=== PATIENT | female | born 1980 | race Caucasian/White ===

== ENCOUNTER 2019-02-21 08:30 | Outpatient (CLI) | payer BC ==
--- NOTE | 2019-02-21 09:58 | RAD ---
PA AND LATERAL VIEWS CHEST: Date: 02/21/19 HISTORY: Shortness of breath, cough, and congestion. FINDINGS: The heart size is normal. The lungs are expanded without focal areas of consolidation, pneumothoraces , or pleural effusions. There are degenerative changes in the spine. IMPRESSION: No acute process. POS: [facility]
== END 2019-02-21 08:31 | disposition home or self-care (01) ==
LOC: SCSRAD 08:30
PROVIDERS: ATTEND Nurse Practitioner Family
DX: R06.02 Shortness of breath (principal)
CPT/HCPCS: 71046

== ENCOUNTER 2019-06-19 09:18 | Emergency (ER) | payer BC ==
[2019-06-19 10:03] LABS: #Basophils 0.1 thou/uL (0.0-0.2); #Eosinphils 0.1 thou/uL (0.0-0.7); #Lymphocytes 1.7 thou/uL (1.20-3.40); #Monocytes 0.6 thou/uL (0.11-0.59); %Basophils 1.9 % (0.0-1.0); %Eosinophils 1.5 % (0.0-10.0); %Lymphocytes 26.2 % (21.0-51.0); %Neutrophils 61.4 % (42.0-75.0); Hemoglobin 16.5 g/dL (12.0-16.0); Mean Corpuscular Hemoglobin 33.7 pg (27.0-31.0); Platelet Count 311 thou/uL (130-400); Red Blood Cell (RBC) Count 4.89 mill/uL (4.20-5.40); White Blood Cell (WBC) Count 6.5 thou/uL (4.8-10.8)
[2019-06-19 10:11] LABS: INR-International Normal Ratio 0.9; PTT 24.6 SEC (22.9-36.1)
[2019-06-19 10:55] LABS: Anion Gap 12 mmol/L (10-20); BUN (Urea Nitrogen) 7 mg/dL (7.0-18.7); Calc. Creatinine Clearance 0 mL/min (70-130); Calcium 9.2 mg/dL (7.8-10.44); Carbon Dioxide 23 mmol/L (22-29); Chloride 104 mmol/L (98-107); Estimated GFR-MDRD 84; Glucose 85 mg/dL (70-105); Sodium 135 mmol/L (136-145)
--- NOTE | 2019-06-19 11:15 | CT ---
CT of the pelvis: 06/19/2019 COMPARISON: None HISTORY: Evaluate for perirectal abscess, pain, purulent discharge TECHNIQUE: Axial CT imaging at 5 mm intervals from the lower lumbar spine region through the proximal femora with IV contrast. Coronal and sagittal reformatted imaging obtained. FINDINGS: Imaged bowel appears grossly unremarkable. The appendix is normal. No lymphadenopathy is se en in the pelvis. Round low-density areas are noted within the cervix suggesting multiple nabothian cysts. There is a p robable small ovarian cyst versus dominant follicle on the right measuring 1.7 cm. No perirectal abscess is noted on this examination. Review of the osseous structures demonstrates lisandro ateral L5 pars defects with anterolisthesis of L5 on S1 measuring 1.4 cm. At L5-S1 there is prominent degenerative endplate change with disc space narrowing and vacuum disc formation. Evaluation for focal anal inflammatory change and/or perirectal/anal fissure limited on CT and would require direct visualization. IMPRESSION: No evidence for a perirectal abscess is noted. Incidental findings as detailed above.
== END 2019-06-19 11:33 | disposition home or self-care (01) ==
LOC: SCSER 09:18
DX: K60.2 Anal fissure, unspecified (principal); Z71.6 Tobacco abuse counseling; F41.9 Anxiety disorder, unspecified; F17.210 Nicotine dependence, cigarettes, uncomplicated; Z79.899 Other long term (current) drug therapy
CPT/HCPCS: 72193; 80048; 85025; 85610; 85730; 96360; 96361

== ENCOUNTER 2019-10-10 09:49 | Outpatient (CLI) | payer BC ==
--- NOTE | 2019-10-10 10:08 | RAD ---
Chest 2 views HISTORY: Cough. COMPARISON: 02/21/2019. FINDINGS: Cardiac silhouette and pulmonary vasculature are unremarkable. Mediastinum is midline. No c onfluent airspace consolidation, pneumothorax, or pleural fluid are evident. IMPRESSION: No active cardiopulmonary abnormalities are demonstrated.
== END 2019-10-10 09:50 | disposition home or self-care (01) ==
LOC: SCSRAD 09:49 → EDSTATUS 09:53
PROVIDERS: ATTEND Nurse Practitioner Family
DX: J40 Bronchitis, not specified as acute or chronic (principal)
CPT/HCPCS: 71046

== ENCOUNTER 2020-12-21 12:10 | Outpatient (CLI) | payer BC | END 2020-12-21 12:11 | disposition home or self-care (01) | LOC: BICRAD 12:10 | PROVIDERS: ATTEND Nurse Practitioner Family | DX: R06.2 Wheezing (principal); F17.200 Nicotine dependence, unspecified, uncomplicated | CPT/HCPCS: 71046 ==